=== PATIENT | female | born 1965 | race Caucasian/White ===

== ENCOUNTER 2021-01-09 07:18 | Day surgery (SDC) | payer OTHER ==
[2021-01-07 11:02] LABS: BASOPHILS % (AUTO) 0.6 % (0.0-5.0); EOSINOPHILS % (AUTO) 1.3 % (0.0-8.0); HEMATOCRIT 47.1 % (36-48); LYMPHOCYTES % (AUTO) 44.5 % (21.0-51.0); MEAN CORPUSCULAR HEMOGLOBIN 31.4 pg (27.0-33.0); MEAN CORPUSCULAR HGB CONC 33.8 g/dL (32.0-36.0); MEAN CORPUSCULAR VOLUME 92.9 fL (79-99); MONOCYTES % (AUTO) 7.9 % (3.0-13.0); NEUTROPHILS % (AUTO) 45.5 % (40.0-77.0); PLATELET COUNT (AUTO) 106 K/uL (130-400); RED BLOOD CELL COUNT(AUTO) 5.07 MIL/uL (4.00-5.50); WHITE BLOOD COUNT (AUTO) 6.3 K/uL (4.8-10.8)
[2021-01-07 11:11] LABS: CREATININE 0.8 mg/dL (0.5-1.5); POTASSIUM 4.6 mmol/L (3.5-5.1)
[2021-01-07 11:52] LABS: INR 1.02 (0.85-1.15); PROTHROMBIN TIME 11.1 SEC (9.6-11.6)
[2021-01-07 11:54] LABS: PARTIAL THROMBOPLASTIN TIME 28.1 SEC (26.3-35.5)
[2021-01-08 14:32] VITALS: BP 166/71
[~2021-01-09] VITALS: Ht 172.7 cm; Wt 77.1 kg
[2021-01-09] MEDS ORDERED: 0.9%NACL 1000ML 1,000 ML IV ONE (07:39)
[2021-01-09 07:51] VITALS: BP 163/71
[2021-01-09] MEDS ORDERED: HEPARIN 1,000 UNIT VIAL ONE (09:47)
[2021-01-09] MEDS ORDERED: LIDOCAINE HCL 400MG/20ML VIAL ONE (09:47)
[2021-01-09] MEDS ORDERED: SODIUM BICARB 50MEQ 50ML VIAL 50 ML ONE (09:47)
[2021-01-09] MEDS ORDERED: LIDOCAINE 1%-EPI 1:100,000 20 ML VIAL IJ ONE (10:16)
[2021-01-09] MEDS ORDERED: MIDAZOLAM HCL 1 MG/ML 2ML VIAL ONE (10:18)
[2021-01-09] MEDS ORDERED: FENTANYL CITRATE PF 50 MCG/1 ML 2ML VIAL ONE (10:18)
[2021-01-09] MEDS ORDERED: OCTYL 2-CYANOACRYLATE 1 EACH TP ONE (11:07)
[2021-01-09] MEDS ORDERED: ACETAMINOPHEN 325 MG TAB PO SCH (11:30)
[2021-01-09 11:45] VITALS: BP 137/67
[2021-01-09 12:00] VITALS: BP 133/67
[2021-01-09 12:15] VITALS: BP 142/63
[2021-01-09 12:30] VITALS: BP 134/64
[2021-01-09 12:45] VITALS: BP 141/69
[2021-06-11] MEDS ORDERED: VITAMIN D3 PO (10:56)
[2021-06-11] MEDS ORDERED: METHYL B12 PO (10:56)
[2021-07-16] MEDS ORDERED: LEVO500T90 PO (18:36)
== END 2021-01-09 13:00 | disposition home or self-care (01) ==
LOC: DAH 07:18
PROVIDERS: ATTEND Internal Medicine Hematology & Oncology
DX: C50.812 Malignant neoplasm of overlapping sites of left female breast (principal); G50.9 Disorder of trigeminal nerve, unspecified; H91.90 Unspecified hearing loss, unspecified ear; Z87.891 Personal history of nicotine dependence; Z80.6 Family history of leukemia; Z80.3 Family history of malignant neoplasm of breast; Z17.0 Estrogen receptor positive status [ER+]; Z79.01 Long term (current) use of anticoagulants
CPT/HCPCS: 36415; 36561; 77001; 80048; 85025; 85610; 85730; A4215; A4221; A4222; A4223; A4663; C1788; C1894; J1644 ×2; J2250; J3010; J3490 ×3; J7030; 99156; 99157

== ENCOUNTER → 2021-02-15 | Outpatient (CLI) | payer OTHER ==
[~2021-02-15] MED LIST: GADOTERATE MEGLUMINE 10 MMOL/20 ML VIAL IV ONE
== END | disposition home or self-care (01) ==
LOC: RAH 02-12 13:47
PROVIDERS: ATTEND Internal Medicine Hematology & Oncology
DX: C50.812 Malignant neoplasm of overlapping sites of left female breast (principal); R59.0 Localized enlarged lymph nodes; N63.21 Unspecified lump in the left breast, upper outer quadrant
CPT/HCPCS: 77049; A9575

== ENCOUNTER 2021-07-16 15:19 | Emergency (ER) | payer OTHER ==
[~2021-07-16] VITALS: Ht 172.7 cm; Wt 67.1 kg
[~2021-07-16 15:19] MED LIST changes: -GADOTERATE MEGLUMINE 10 MMOL/20 ML VIAL IV ONE; +METHYL B12 PO; +VITAMIN D3 PO
[2021-07-16 15:21] VITALS: BP 154/76
[2021-07-16 15:36] VITALS: BP 161/54
[2021-07-16 15:59] LABS: BASOPHILS % (AUTO) 0.9 % (0.0-5.0); EOSINOPHILS % (AUTO) 0.5 % (0.0-8.0); HEMATOCRIT 41.2 % (36-48); LYMPHOCYTES % (AUTO) 34.8 % (21.0-51.0); MEAN CORPUSCULAR VOLUME 90.9 fL (79-99); NEUTROPHILS % (AUTO) 39.8 % (40.0-77.0); PLATELET COUNT (AUTO) 101 K/uL (130-400); RED BLOOD CELL COUNT(AUTO) 4.53 MIL/uL (4.00-5.50); RED CELL DISTRIBUTION WIDTH 12.5 % (11.0-15.5); WHITE BLOOD COUNT (AUTO) 2.2 K/uL (4.8-10.8)
[2021-07-16] MEDS: ONDANSETRON 4MG INJ IVP ONE (16:02)
[2021-07-16 16:10] LABS: CREATININE 0.8 mg/dL (0.5-1.5); POTASSIUM 3.7 mmol/L (3.5-5.1)
[2021-07-16 16:19] LABS: ALBUMIN 3.2 g/dL (3.5-5.0); BILIRUBIN,TOTAL 0.3 mg/dL (0.2-1.0); TOTAL PROTEIN, SERUM 6.8 g/dL (6.0-8.3)
[2021-07-16] MEDS: GABAPENTIN 100 MG CAPSULE PO SCH (16:20)
[2021-07-16 16:32] LABS: BAND NEUTROPHILS % (MANUAL) 2 % (0-2); EOSINOPHILS % (MANUAL) 3 % (1-6); LYMPHOCYTES % (MANUAL) 36 % (22-44); MONOCYTES % (MANUAL) 16 % (2-9); REACTIVE LYMPHOCYTES 3 % (0-0); SEGMENTED NEUTROPHILS % 40 % (40-70)
[2021-07-16 16:34] LABS: MAN.DIFF COMMENT-IMPRESSION MANUAL DIFFERENTIAL; PLATELET MORPHOLOGY COMMENT SLIGHTLY DECREASED
[2021-07-16 16:41] VITALS: BP 160/79
[2021-07-16 17:00] LABS: APPEARANCE,URINE Clear (CLEAR); BILIRUBIN,URINE Negative (NEGATIVE); COLOR,URINE Yellow (YELLOW); GLUCOSE, URINE (UA) Negative (NEGATIVE); KETONES,URINE 40 mg/dL (NEGATIVE); LEUKOCYTE ESTERASE ,URINE Moderate (NEGATIVE); NITRATE,URINE Negative (NEGATIVE); OCCULT BLOOD,URINE Negative (NEGATIVE); PH,URINE 6.5 (5.0-8.0); PROTEIN,URINE Negative (NEGATIVE)
[2021-07-16] MEDS: MORPHINE 4 MG SYG ONE (17:10)
[2021-07-16 17:15] LABS: BACTERIA,URINE Few /HPF (None Seen); MUCUS,URINE Moderate LPF (None Seen); SQUAMOUS EPITHELIAL CELL,UR Few /HPF (0-2)
[2021-07-16] MEDS: MORPHINE 4 MG SYG IV ONE (17:15)
[2021-07-16 17:41] VITALS: BP 148/64
[2021-07-16] MEDS: LEVOFLOXACIN 500 MG TABLET PO SCH (18:35)
[2021-07-16] MEDS ORDERED: LEVO500T89 PO (18:36)
[2021-07-16 18:38] VITALS: BP 151/87
== END 2021-07-16 18:45 | disposition home or self-care (01) ==
LOC: EDH 15:19
DX: T81.40XA Infection following a procedure, unspecified, initial encounter (principal); R20.2 Paresthesia of skin; D69.6 Thrombocytopenia, unspecified; D72.819 Decreased white blood cell count, unspecified; Z79.899 Other long term (current) drug therapy; Z85.3 Personal history of malignant neoplasm of breast; Z90.13 Acquired absence of bilateral breasts and nipples
CPT/HCPCS: 36415; 71045; 80053; 81001; 82550; 83690; 84484; 85025; 87088; 93005; 96374; 96375; 99285; J2270; J2405